=== PATIENT | female | born 1995 | race Hispanic/Latino ===

== ENCOUNTER 2018-12-28 15:13 | Emergency (ER) | payer OTHER ==
[2018-12-28] MEDS ORDERED: Sodium Chloride 0.9% 1,000 ML IV STA (16:06)
[2018-12-28] MEDS ORDERED: Iohexol 240 (50 ml) PO ONE (16:06)
[2018-12-28] MEDS ORDERED: Iohexol 240 (50 ml) ONE (16:32)
--- NOTE | 2018-12-28 16:33 | ED PDOC ---
HPI: Abdomen Time Seen by Provider: 12/28/18 15:54 Chief Complaint (Nursing): Abdominal Pain Chief Complaint (Provider): abdominal pain History Per: Patient History/Exam Limitations: no limitations Onset/Duration Of Symptoms: Days (x3) Current Symptoms Are (Timing): Intermittent Episodes Location Of Pain/Discomfort: RLQ, Periumbilical Additional Complaint(s): Jacinta Moralez is a 23 year old female, with no significant past medical history, who presents to the emergency department complaining of an intermittent abdominal pain and diarrhea onset for x3 days. Patient states pain started in periumbilical area but feels it more in the RLQ today. She reports a watery non bloody diarrhea. She was seen at [facility] in [place] where she had some bloodwork done and was told that her liver enzymes were elevated. She denies any fever, chills, vomiting, back pain, vaginal problems or urinary symptoms. No further medical complaints. PMD: Clinic Past Medical History Reviewed: Historical Data, Nursing Documentation, Vital Signs Vital Signs: Last Vital Signs Temp 98.6 F 12/28/18 15:46 Pulse 84 12/28/18 15:46 Resp 16 12/28/18 15:46 BP 104/62 12/28/18 15:46 Pulse Ox 100 12/28/18 15:46 - Medical History PMH: No Chronic Diseases - Surgical History Surgical History: No Surg Hx - Family History Family History: States: Unknown Family Hx - Social History Ex-Smoker (has not smoked in the last 12 months): Yes Alcohol: Occasional Drugs: Denies - Home Medications Home Medications: Ambulatory Orders Medication Instructions Recorded Ondansetron ODT [Zofran ODT] 4 mg PO Q8 PRN #12 odt 12/28/18 - Allergies Allergies/Adverse Reactions: Allergies Allergy/AdvReac Type Severity Reaction Status Date / Time peanut Allergy ANAPHYLAXIS Verified 12/28/18 16:10 Review of Systems ROS Statement: Except As Marked, All Systems Reviewed And Found Negative Constitutional: Negative for: Fever, Chills Gastrointestinal: Positive for: Nausea, Abdominal Pain, Diarrhea. Negative for: Vomiting Genitourinary Female: Negative for: Dysuria, Frequency, Incontinence, Vaginal Discharge, Vaginal Bleeding Musculoskeletal: Negative for: Back Pain Physical Exam - Reviewed Nursing Documentation Reviewed: Yes Vital Signs Reviewed: Yes - Physical Exam Appears: Positive for: No Acute Distress (comfortable) Head Exam: Positive for: ATRAUMATIC, NORMAL INSPECTION, NORMOCEPHALIC Skin: Positive for: Normal Color, Warm, Dry Eye Exam: Positive for: Normal appearance, EOMI, PERRL ENT: Positive for: Normal ENT Inspection Neck: Positive for: Normal, Painless ROM, Supple Cardiovascular/Chest: Positive for: Regular Rate, Rhythm. Negative for: Murmur Respiratory: Positive for: Normal Breath Sounds. Negative for: Respiratory Distress Gastrointestinal/Abdominal: Positive for: Soft, Tenderness (RLQ and periumbilical). Negative for: Guarding, Rebound Back: Positive for: Normal Inspection. Negative for: L CVA Tenderness, R CVA Tenderness Extremity: Positive for: Normal ROM (upper and lower extremities). Negative for: Deformity, Swelling Neurologic/Psych: Positive for: Alert, Oriented. Negative for: Motor/Sensory Deficits - Laboratory Results Result Diagrams: 12/28/18 16:32 12/28/18 16:32 - ECG O2 Sat by Pulse Oximetry: 100 (RA) Pulse Ox Interpretation: Normal - Progress Re-evaluation Time: 21:17 Condition: Re-examined, Improved Medical Decision Making Medical Decision Making: Time: 15:54 Initial Impression: abdominal pain and diarrhea. Differential includes acute appendicitis, gastroenteritis and pancreatitis, less likely acute cholecystitis Initial Plan: --Abd Pelvis PO & IV Contrast [CT] --CMP --Lipase --Urine --Urine dipstick --CBC w/ differential --NaCl 1,000 ml IV 1,000 mls/hr --Omnipaque 240 50 ml PO --Zofran Inj 4 mg IVP --Reevaluation Time: 1931 CT RESULTS FINDINGS: LUNG BASES: The lung bases appear clear. No pleural effusions are seen. LIVER: Unremarkable. GALLBLADDER AND BILE DUCTS: The gallbladder appears within normal limits. No radioopaque gallstones are seen. No biliary ductal dilatation is evident. PANCREAS: Unremarkable. SPLEEN: Unremarkable. ADRENAL GLANDS: Unremarkable. KIDNEYS, URETERS, AND BLADDER: The kidneys appear within normal limits. There is no hydronephrosis or hydroureter. No urinary calculi are seen. STOMACH AND BOWEL: Unremarkable appearance of the stomach and bowel. No evidence of bowel obstruction. No evidence suggesting enteritis or colitis. APPENDIX: No evidence of acute appendicitis on CT examination. PERITONEUM: There is a small amount of free fluid within the pelvis. LYMPH NODES: No lymphadenopathy is evident. REPRODUCTIVE: Unremarkable as visualized. VASCULATURE: No evidence of abdominal aortic aneurysm. BONES: No aggressive appearing osseous lesion. No acute osseous pathology evident. IMPRESSION: No suspicious mass or lymphadenopathy. Small amount of free fluid within the pelvis suspected. Close clinical correlation is advised. Electronically signed on Dec 28, 2018 7:32:16 PM EST by: Sánchez Shaffer M.D., Certified by [employer]BR, Diagnostic Radiology Scribe Attestation: Documented by Donnell Patel, acting as a scribe for Madhu Landis MD Provider Scribe Attestation: All medical record entries made by the Scribe were at my direction and personally dictated by me. I have reviewed the chart and agree that the record accurately reflects my personal performance of the history, physical exam, medical decision making, and the department course for this patient. I have also personally directed, reviewed, and agree with the discharge instructions and disposition. Time: 1999 -- Labs reviewed and demonstrate no clinically significant abnormality. -- On re-evaluation patient reports of minimal pain. Toradol 30 mg IVP and Bentyl 10 mg ordered. Scribe Attestation: Documented by Lillian Liz, acting as a scribe for Madhu Landis MD. Provider Scribe Attestation: All medical record entries made by the Scribe were at my direction and personally dictated by me. I have reviewed the chart and agree that the record accurately reflects my personal performance of the history, physical exam, medical decision making, and the department course for this patient. I have also personally directed, reviewed, and agree with the discharge instructions and disposition. Disposition - Clinical Impression Clinical Impression: Abdominal pain, Diarrhea - Patient ED Disposition Is Patient to be Admitted: No Doctor Will See Patient In The: Office Counseled Patient/Family Regarding: Studies Performed, Diagnosis, Need For Followup - Disposition Referrals: Asa Davis MD, PhD [Staff Provider] - Disposition: Routine/Home Disposition Time: 21:18 Condition: GOOD Additional Instructions: JACINTA MORALEZ, thank you for letting us take care of you today. Your provider was Madhu Landis MD and you were treated for ABD PAIN, NAUSEA. The emergency medical care you received today was directed at your acute symptoms. If you were prescribed any medication, please fill it and take as directed. It may take several days for your symptoms to resolve. Return to the Emergency Department if your symptoms worsen, do not improve, or if you have any other problems. Please contact your doctor or call one of the physicians/clinics you have been referred to that are listed on the Patient Visit Information form that is included in your discharge packet. Bring any paperwork you were given at discharge with you along with any medications you are taking to your follow up visit. Our treatment cannot replace ongoing medical care by a primary care provider outside of the emergency department. Thank you for allowing the [facility] team to be part of your care today. If you had an X-Ray or CT scan: A Radiologist will review the ED reading if any change in treatment is needed we will contact you. If you had a blood, urine, or wound culture: It will take several days for the results, if any change in treatment is needed we will contact you. If you had an STI test: It will take 48 hours for the results. Please call after 1 week if you have not heard back. Prescriptions: Ondansetron ODT [Zofran ODT] 4 mg PO Q8 PRN #12 odt PRN Reason: Nausea/Vomiting Instructions: Diarrhea in Adolescents and Adults
[2018-12-28 16:36] LABS: BASO % 0.8 % (0.0-2.0); EOS # 0.2 K/uL (0.0-0.7); EOS % 4.3 % (0.0-4.0); HEMOGLOBIN 14.7 g/dL (12.0-16.0); LYMPH # 1.4 K/uL (1.0-4.3); MEAN CELL VOLUME 92.1 fl (81.0-99.0); MEAN CORPUSCULAR HEMOGLOBIN 31.1 pg (27.0-31.0); MEAN CORPUSCULAR HGB CONC 33.8 g/dL (33.0-37.0); MEAN PLATELET VOLUME 9.7 fl (7.2-11.7); MONO # 0.6 K/uL (0.0-0.8); MONO % 11.8 % (0.0-10.0); NEUT # 2.9 K/uL (1.8-7.0); NEUT % 56.1 % (50.0-75.0); NRBC % 0.1 % (0.0-0.0); RBC 4.71 Mil/uL (3.80-5.20); RED CELL DISTRIBUTION WIDTH 12.8 % (11.5-14.5); WHITE BLOOD COUNT 5.3 K/uL (4.8-10.8)
[2018-12-28 16:45] LABS: ALB/GLOB RATIO 1.3 (1.0-2.1); ALBUMIN 4.2 g/dL (3.5-5.0); ALT/SGPT 126 U/L (9-52); AST/SGOT 74 U/L (14-36); BLOOD UREA NITROGEN 7 mg/dl (7-17); CALCIUM 9.3 mg/dL (8.4-10.2); GFR NON-AFRICAN AMERICAN > 60; LIPASE 321 U/L (23-300)
[2018-12-28] MEDS ORDERED: Iohexol 300 100 ML IJ ONE (17:17)
[2018-12-28] MEDS ORDERED: Sodium Chloride 0.9% 50 ML IV ONE (17:17)
[2018-12-28 21:48] VITALS: BP 112/60; PULSE 88; RESP 20; TEMP 98.2; O2SAT 99
--- NOTE | 2018-12-29 12:08 | CT ---
Date of service: 12/28/2018 PROCEDURE: CT Abdomen and Pelvis with contrast HISTORY: RLQ pain diarrhea Negative test (concurrent with this examination). COMPARISON: None TECHNIQUE: Intravenous contrast dose: 95 cc Omnipaque 300. Radiation dose: Total exam DLP = 319.93 mGy-cm. This CT exam was performed using one or more of the following dose reduction techniques: Automated exposure control, adjustment of the mA and/or kV according to patient size, and/or use of iterative reconstruction technique. FINDINGS: LOWER THORAX: Unremarkable. LIVER: Unremarkable. No gross lesion or ductal dilatation. GALLBLADDER AND BILE DUCTS: Unremarkable. PANCREAS: Unremarkable. No gross lesion or ductal dilatation. SPLEEN: Unremarkable. ADRENALS: Unremarkable. No mass. KIDNEYS AND URETERS: Unremarkable. No hydronephrosis. No solid mass. VASCULATURE: Unremarkable. No aortic aneurysm. No atherosclerotic calcification or mural plaque present. BOWEL: Fluid-filled right sophia colon. No adjacent inflammatory changes. Mild thickening the wall of small bowel. Constipation without fecal impaction or obstruction. APPENDIX: A normal appendix is visualized in it's entirety. PERITONEUM: Unremarkable. No free fluid. No free air. LYMPH NODES: Unremarkable. No enlarged lymph nodes. BLADDER: Unremarkable. REPRODUCTIVE: Unremarkable. BONES: No acute fracture. OTHER FINDINGS: None. IMPRESSION: No evidence of colitis, appendicitis. No visible free air, mechanical obstruction, appendicitis. Mild enteritis associated with high volume of fluid and debris in the right sophia colon. Concordant results (preliminary interpretation) provided by [employer]. Procedure Completed: 18:43. Preliminary Report: Dictated and Authenticated: 19:32. Final Interpretation: 12:04. December 29, 2018
== END 2018-12-28 21:48 | disposition home or self-care (01) ==
LOC: H.ER 15:13
DX: R10.31 Right lower quadrant pain (principal); R19.7 Diarrhea, unspecified
CPT/HCPCS: 74177; 80053; 81025; 83690; 85025; 96361; 96374; 96375; 99284; J1885; J2405; J7030; Q9966; Q9967

== ENCOUNTER 2019-03-14 19:42 | Emergency (ER) | payer OTHER ==
[2019-03-14 19:55] VITALS: O2SAT 100
--- NOTE | 2019-03-14 21:46 | ED PDOC ---
HPI: Allergic Reaction Time Seen by Provider: 03/14/19 20:00 Chief Complaint (Nursing): Allergic Reaction Chief Complaint (Provider): ALLERGIC REACTION History Per: Patient History/Exam Limitations: no limitations Onset/Duration Of Symptoms: Hrs Current Symptoms Are (Timing): Still Present Possible Cause: Food Associated Symptoms: Skin Rash, Itching, Redness Home/EMS Treatment: Benadryl, H2 Blockers Severity: Mild Additional History Per: Patient Additional Complaint(s): 23 Y/O FEMALE WITH NO SIGNIFICANT MEDICAL HISTORY C/O ITCHINESS, LIP SWELLING AND RASH TO CHEST, RIGHT EAR, UPPER LIP IMMEDIATELY AFTER EATING A SHRIMP WITH WINE SAUCE IN A [employer]. 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 PATIENT TOOK BENADRYL TWO TABS WELL CLARITIN PRIOR TO ARRIVAL WITH MINIMAL IMPROVEMENT. PATIENT DENIES SHORTNESS OF BREATH, DIFFICULTY BREATHING OR DIFFICULTY SWALLOW SECRETIONS. Past Medical History Reviewed: Historical Data, Nursing Documentation, Vital Signs Vital Signs: Last Vital Signs Temp 97.5 F L 03/14/19 19:50 Pulse 84 03/14/19 19:50 Resp 16 03/14/19 19:50 BP 132/81 03/14/19 19:50 Pulse Ox 100 03/14/19 19:50 - Medical History PMH: No Chronic Diseases - Surgical History Surgical History: No Surg Hx - Family History Family History: States: Unknown Family Hx - Social History Alcohol: None Drugs: Denies - Home Medications Home Medications: Ambulatory Orders Medication Instructions Recorded Ondansetron ODT [Zofran ODT] 4 mg PO Q8 PRN #12 odt 12/28/18 DiphenhydrAMINE [Benadryl] 50 mg PO Q6H PRN #30 cap 03/14/19 Famotidine [Pepcid] 20 mg PO DAILY #4 tab 03/14/19 predniSONE [predniSONE Tab] 60 mg PO DAILY #12 tab 03/14/19 - Allergies Allergies/Adverse Reactions: Allergies Allergy/AdvReac Type Severity Reaction Status Date / Time peanut Allergy ANAPHYLAXIS Verified 12/28/18 16:10 Review of Systems ROS Statement: Except As Marked, All Systems Reviewed And Found Negative Constitutional: Negative for: Fever, Chills, Weakness, Malaise Eyes: Negative for: Pain, Vision Change, Conjunctivae Inflammation, Eyelid Inflammation, Redness ENT: Negative for: Ear Pain, Ear Discharge, Nose Pain, Nose Discharge, Nose Congestion, Mouth Pain, Mouth Swelling, Throat Pain, Throat Swelling Cardiovascular: Negative for: Chest Pain, Palpitations, Light Headedness Respiratory: Negative for: Cough, Shortness of Breath, SOB with Exertion, Pleuritic Pain, Wheezing Gastrointestinal: Negative for: Nausea, Vomiting, Abdominal Pain, Diarrhea Skin: Positive for: Rash, Other (ITCHINESS ) Physical Exam - Reviewed Nursing Documentation Reviewed: Yes Vital Signs Reviewed: Yes - Physical Exam Appears: Positive for: Well, Non-toxic, No Acute Distress Head Exam: Positive for: ATRAUMATIC, NORMAL INSPECTION, NORMOCEPHALIC Skin: Positive for: Normal Color, Warm, Rash (REDNESS TO FACE, CHEST AND RIGHT EAR) Eye Exam: Positive for: EOMI, Normal appearance, PERRL ENT: Positive for: Normal ENT Inspection. Negative for: Nasal Congestion, Phar yngeal Erythema, Tonsillar Swelling Neck: Positive for: Normal, Painless ROM, Supple Cardiovascular/Chest: Positive for: Regular Rate, Rhythm, Chest Non Tender Respiratory: Positive for: Normal Breath Sounds, Other (SPEAKING IN FULL SENTENCES, CONVERSATING WITH FRIEND IN NO DISTRESS. ). Negative for: Accessory Muscle Use, Crackles, Rales, Rhonchi, Stridor, Wheezing, Respiratory Distress Gastrointestinal/Abdominal: Positive for: Normal Exam, Bowel Sounds, Soft. Negative for: Tenderness, Distended Back: Positive for: Normal Inspection Extremity: Positive for: Normal ROM Neurological/Psych: Positive for: Awake, Alert, Normal Tone, Oriented - Laboratory Results Urine POC: Negative - ECG O2 Sat by Pulse Oximetry: 100 - Progress ED Course And Treament: 21:30: PATIENT IN ROOM WITH NO RESPIRATORY DISTRESS. PATIENT STATES ITCHINESS HAS IMPROVED BUT HAS SLIGHT ITCHINESS TO LIP. MOUTH FEELS BETTER WELL ITCHINESS TO RIGHT EAR. REDNESS TO EAR AND CHEST IMPROVED. LUNGS ARE CLEAR BILAT ON AUSCULTATION. PATIENT WANTS TO GO HOME. PATIENT STABLE. RX GIVEN FOR PREDNISODNE, PEPCID AND BENADRYL. INSTRUCTIONS GIVEN BY ME. PATIENT STATES SHE HAS SKIN TESTING DONE 6 MONTHS AGO NO NEW ALLERGIES. RETURN TO ED PRECAUTIONS GIVEN. PATIENT INSTRUCTED TO TAKE MEDS TOMORROW FIRST DOSES GIVEN IN ED. BARNADRYL AT 1AM IF NEEDED. PATIENT STATES UNDERSTANDING AND AGREES WITH PLAN. Disposition - Clinical Impression Clinical Impression: Allergic reaction - Patient ED Disposition Is Patient to be Admitted: No Counseled Patient/Family Regarding: Diagnosis, Rx Given - Disposition Disposition: Routine/Home Disposition Time: 21:44 Condition: IMPROVED Prescriptions: DiphenhydrAMINE [Benadryl] 50 mg PO Q6H PRN #30 cap PRN Reason: Itching / Pruritus Famotidine [Pepcid] 20 mg PO DAILY #4 tab predniSONE [predniSONE Tab] 60 mg PO DAILY #12 tab Instructions: Allergy Skin Testing Print Language: TURKISH - POA Present On Arrival: None
[2019-03-14 23:53] VITALS: BP 104/62; PULSE 71; RESP 18; TEMP 99
== END 2019-03-14 21:50 | disposition home or self-care (01) ==
LOC: H.ER 19:42
DX: T78.40XA Allergy, unspecified, initial encounter (principal)